=== PATIENT | female | born 1990 | race Caucasian/White ===

== ENCOUNTER 2023-08-29 15:54 | Emergency (ER) | payer OTHER, SELFPAY ==
[2023-08-29 15:58] VITALS: BP 138/87; PULSE 88; RESP 18; TEMP 36.8; O2SAT 97
--- NOTE | 2023-08-29 16:08 | ED.GENADUL_ITS ---
Discharge Plan Disposition Patient Disposition: Home Discharge Details Clinical Impression: Abnormal mouth sensation Primary Care Provider: Melissa,Local ED Provider: Kyree Perrin Home Meds and New Rx's Prescriptions: Continued cephalexin 500 mg capsule 500 mg PO QID buspirone 15 mg tablet 15 mg PO BID Mirena 21 mcg/24 hours (8 yrs) 52 mg intrauterine device 1 device intrauterine ONCE Rx Instructions: as a single dose Discharge Instructions Additional Instructions: You are seen in the emergency department for your abnormal sensation on your tongue. You have no signs of anaphylaxis. Please continue taking your antibiotics as previously prescribed. Please return to the emergency department if you develop difficulty breathing nausea vomiting or any significant swelling. Discharge Data Discharge Date/Time-TO BE ENTERED AT DEPARTURE: 08/29/23 16:37 HPI General Date/Time Provider Initiated Documentation: 08/29/23 16:08 . HPI Narrative: MDM This is a previously healthy normothermic and not tachycardic 32-year-old female with abnormal sensation on her tongue with history and physical not consistent with anaphylaxis given cephalexin use appropriate for empiric trial of discharge with expectant outpatient management. No pain out of proportion to suggest necrotizing soft tissue infection. No nausea no vomiting so low suspicion for anaphylaxis. Furthermore no tongue swelling nor stridor. Patient and I discussed low cross-reactivity between penicillins and cephalosporins. Patient reported that she did not have anaphylaxis with taking penicillin since she was not certain as to what her allergic reaction was as this occurred when she was a child. I advised her that I felt that the risk of allergic reaction to the cephalosporin was exceedingly low. Patient did not have a rash. No visual changes to suggest multiple sclerosis. I advised that I was not certain as to whether patient may develop anaphylaxis but that I did not feel that she required monitoring in the emergency department. Patient and I discussed return to the ED for any tongue swelling any difficulty breathing nausea vomiting. Tony benavidez understood her return indications and was discharged with empiric trial of expectant outpatient management. HPI This is a 32-year-old female with history of anxiety and prior allergy to penicillin arrived to the emergency department via private vehicle in setting of strange sensation on her tongue after taking cephalexin just prior to arrival for an infected left ear piercing. Patient reports that she remotely had an allergy to penicillin when she was a child. She does not recall what this allergy was. She reports it was not anaphylaxis. She takes medicines for anxiety. She occasionally drinks alcohol but denies routine tobacco or illicits. She is visiting [place] from [facility] where she is due to start a new job. She was seen in urgent care earlier today and had an infected left ear piercing for which she received cephalexin. She reports that after taking the first dose she had a strange sensation along her tongue. She denies tongue swelling shortness of breath nausea vomiting and any rashes. Exam General: Well-appearing in no acute distress speaking in complete sentences. Head: Normocephalic, atraumatic. Eye: Extraocular eye movements intact. No conjunctival injection. No scleral icterus. Ear, nose, mouth, throat: On the left ear there is a piercing with very mild surrounding erythema. No proptosis. No mastoid tenderness. No pain out of proportion. Normal voice, handling secretions normally. No intraoral swelling. No stridor. Neck: Trachea midline. Cardiovascular: Well-perfused distal extremities. Regular rate and rhythm. Respiratory: Nonlabored respiration. Clear lungs bilaterally. No wheezes. Gastrointestinal: Nondistended abdomen. Musculoskeletal: No edema. Moving all 4 extremities spontaneously. Skin: Normal for age and race, grossly normal temperature and turgor. No acute rash. Neurologic: Alert and appropriate, no apparent acute deficits. Psychiatric: Mood and manner are appropriate. Grooming and personal hygiene are appropriate. Related Data Home Medications Medication Instructions Recorded Confirmed buspirone 15 mg tablet 15 mg PO BID 08/29/23 08/29/23 cephalexin 500 mg capsule 500 mg PO QID 08/29/23 08/29/23 levonorgestrel 21 mcg/24 hours (8 1 device intrauterine ONCE 08/29/23 08/29/23 yrs) 52 mg intrauterine device (Mirena) Allergies Allergy/AdvReac Type Severity Reaction Status Date / Time Penicillins AdvReac Mild Other (See Verified 08/29/23 16:04 Comment) General Stated Complaint: Allergic HERNAN: 3 Course Vital Signs Vital signs: Vital Signs Temperature 36.8 C 08/29/23 15:58 Pulse 88 08/29/23 15:58 Respiratory Rate 18 08/29/23 15:58 Blood Pressure 138/87 08/29/23 15:58 Pulse Oximetry 97 08/29/23 15:58 Temperature 36.8 C 08/29/23 15:58 Temperature Source Temporal Artery Scan 08/29/23 15:58 Pulse 88 08/29/23 15:58 Respiratory Rate 18 08/29/23 15:58 Blood Pressure 138/87 08/29/23 15:58 Pulse Oximetry 97 08/29/23 15:58 Oxygen Delivery Method Room Air 08/29/23 15:58 Oxygen Flow Rate 0 08/29/23 15:58 Medical Decision Making Quality:SDOH Health Related Social Needs: No Data to Display PFSH All Active Problems (Updated 08/29/23 @ 16:19 by Kyree Perrin MD) Abnormal mouth sensation (Acute) Social History Smoking risk assessment performed?: No Alcohol Intake: current Substance use type: does not use Housing: apartment Do you feel safe at home: Yes Do you feel safe in your relationship?: Yes
== END 2023-08-29 16:37 | disposition home or self-care (01) ==
LOC: ER 17:06
PROVIDERS: Emergency Provider Emergency Medicine
DX: F41.9 Anxiety disorder, unspecified (principal); K14.8 Other diseases of tongue; Z88.0 Allergy status to penicillin
CPT/HCPCS: 99282; 99283